=== PATIENT | female | born 1990 | race Caucasian/White ===

== ENCOUNTER 2023-01-11 17:42 | Emergency (ER) | payer OTHER ==
[2023-01-11] MEDS ORDERED: Acetaminophen 325 MG TAB ONE (20:24)
[2023-01-11] MEDS ORDERED: Lidocaine 1% (PF) 30 ML VIAL ONE (20:24)
[2023-01-11] MEDS ORDERED: Ibuprofen 200 MG TAB ONE (20:24)
[2023-01-11] MEDS ORDERED: Lidocaine/Transparent Dressing 1 EACH KIT ONE (20:24)
[2023-01-11] MEDS ORDERED: Bacitracin 1 PK ONE (21:08)
== END 2023-01-11 21:26 | disposition home or self-care (01) ==
LOC: CSHERS 17:42
DX: S51.811A Laceration without foreign body of right forearm, initial encounter (principal); F17.210 Nicotine dependence, cigarettes, uncomplicated; W54.0XXA Bitten by dog, initial encounter
CPT/HCPCS: 12001; J2001